=== PATIENT | female | born 1935 | race African-American/Black ===

== ENCOUNTER 2019-01-10 08:07 | Emergency (ER) | payer MEDICARE, OTHER ==
[~2019-01-10] VITALS: Ht 154.9 cm; Wt 85.5 kg
[~2019-01-10 08:07] MED LIST: ALBU8.5H3 IH; AMLO5TAB9 PO; ASPI-556 PO; CHOL200059 PO; HYDR25TA PO; MELO-107 PO; MONT10TA21 PO; OLOP15OS OP
[2019-01-10] MEDS ORDERED: CYCL10 PO (08:22)
[2019-01-10] MEDS ORDERED: AUD NEB (08:22)
[2019-01-10] MEDS ORDERED: CYAN500T65 PO (08:22)
[2019-01-10] MEDS ORDERED: NYST15PO3 TP (08:22)
[2019-01-10] MEDS ORDERED: FLUT12AE3 IH (08:22)
[2019-01-10] MEDS ORDERED: TRIA1CAP2 PO (08:22)
[2019-01-10] MEDS ORDERED: LIDOCAINE 5% TRANSDERMAL PATCH TD ONE (09:30)
[2019-01-10 10:18] VITALS: BP 133/84
== END 2019-01-10 10:17 | disposition home or self-care (01) ==
LOC: EMS 08:09
DX: R20.2 Paresthesia of skin (principal); M79.601 Pain in right arm; J45.909 Unspecified asthma, uncomplicated; I10 Essential (primary) hypertension; Z90.89 Acquired absence of other organs; Z79.82 Long term (current) use of aspirin; Z88.5 Allergy status to narcotic agent